=== PATIENT | male | born 1945 | race Two or more races ===

== ENCOUNTER 2017-06-02 20:49 | Inpatient (IN) | payer MEDICARE, OTHER ==
[~2017-06-02] VITALS: Ht 182.9 cm; Wt 100.7 kg
[2017-06-02] MEDS ORDERED: BICA50TA6 PO (21:07)
[2017-06-02] MEDS ORDERED: METF10004 PO (21:07)
[2017-06-02] MEDS ORDERED: CANA300T PO (21:07)
[2017-06-02] MEDS ORDERED: SITA100T PO (21:07)
[2017-06-02] MEDS ORDERED: BUPR300T54 PO (21:07)
[2017-06-02] MEDS ORDERED: LEUP22.53 IM (21:07)
[2017-06-02] MEDS ORDERED: PANT40TA4 PO (21:07)
[2017-06-02] MEDS ORDERED: BRIM5DRO3 OP (21:07)
[2017-06-02] MEDS ORDERED: ACET500C43 PO (21:07)
[2017-06-02] MEDS ORDERED: GEMF600T3 PO (21:07)
[2017-06-02] MEDS ORDERED: TAMS0.4C34 PO (21:07)
--- NOTE | 2017-06-02 22:05 | NUR ---
DR TARI LOPEZ MD AT BEDSIDE FOR MSE.
[2017-06-02 22:25] LABS: BASOPHILS % (AUTO) 0.3 % (0.0-2.0); EOSINOPHILS # (AUTO) 0.2 K/uL (0.0-0.7); HEMATOCRIT 30.2 % (36.7-47.1); HEMOGLOBIN 9.9 g/dL (12.5-16.3); LYMPHOCYTES % (AUTO) 22.2 % (20.5-51.5); MEAN CORPUSCULAR HEMOGLOBIN 27.9 uug (23.8-33.4); MEAN CORPUSCULAR HGB CONC 33 g/dL (32.5-36.3); MEAN CORPUSCULAR VOLUME 85.3 fL (73.0-96.2); MONOCYTES # (AUTO) 0.9 K/uL (2.0-10.0); MONOCYTES % (AUTO) 10.5 % (0.0-11.0); NEUTROPHILS # (AUTO) 5.8 K/uL (1.8-8.9); PLATELET COUNT (AUTO) 283 K/uL (152-348); RED BLOOD CELL COUNT(AUTO) 3.54 MIL/uL (4.06-5.63); WHITE BLOOD COUNT (AUTO) 8.9 K/uL (3.6-10.2)
--- NOTE | 2017-06-02 22:28 | NUR ---
XRAY AT PT BEDSIDE.
[2017-06-02 22:34] LABS: CARBON DIOXIDE 18 mmol/L (21-32); CHLORIDE 109 mmol/L (98-107); CREATININE 1.3 mg/dL (0.6-1.3); GLUCOSE 126 mg/dL (74-106); POTASSIUM 3.7 mmol/L (3.5-5.1); UREA NITROGEN, BLOOD 17 mg/dL (7-18)
[2017-06-02 22:40] LABS: ALANINE AMINOTRANSFERASE 17 U/L (16-63); ALKALINE PHOSPHATASE 115 U/L (50-136); ASPARTATE AMINOTRANSFERASE 13 U/L (15-37); BILIRUBIN,DIRECT 0.1 mg/dL (0.0-0.2); BILIRUBIN,TOTAL 0.3 mg/dL (0.2-1.0); TOTAL PROTEIN, SERUM 7.1 g/dL (6.4-8.2)
[2017-06-03] MEDS ORDERED: HYDROCODONE/APAP 5-325MG TABLET PO PRN (02:15)
[2017-06-03] MEDS ORDERED: DEXTROSE 50% 50 ML DISP.SYRIN IV PRN (02:15)
[2017-06-03] MEDS ORDERED: MAGNESIUM HYDROXIDE 30 ML LIQUID UDC PO PRN (02:15)
[2017-06-03] MEDS ORDERED: Z GUARD REMEDY PASTE 57 GM TUBE TOP PRN (02:15)
[2017-06-03] MEDS ORDERED: ACETAMINOPHEN 325 MG TABLET PO PRN (02:15)
[2017-06-03] MEDS ORDERED: ONDANSETRON 4 MG/2 ML VIAL IV PRN (02:15)
--- NOTE | 2017-06-03 03:15 | NUR ---
REPORT GIVEN TO CAROLINE RUIZ.
--- NOTE | 2017-06-03 03:40 | NUR ---
Pt. admitted to TELE, under care of Dr. SOLANO Belongs List completed
[2017-06-03 04:00] VITALS: BP 121/52
--- NOTE | 2017-06-03 04:10 | NUR ---
ADMITTED THIS71 Y.O. MALE FROM ER VIA [facility],ACCOMPANIED BY ER NURSE, IN APPARENTLY FAIR CONDITION,CHIEF COMPLAINTS OF DIZZINESS SINCE YESTERDAY.ALERT AND ORIENTED.NO ACUTE DISTRESS NOTED. FACIAL BRUISING NOTED. VITAL SIGNS TAKEN AND RECORDED.NEEDS ATTENDED TO, REFUSED TO BE EXAMINED AND ASSESSED AT THIS TIME, ACCORDING TO HIM HE JUST WANTS TO BE COVERED AND SLEEP .KEPT WARM AND COMFORTABLE. 2 RAILS UP AND BED ALARM ON . INSTRUCTIONS ON HOW TO USE CALL LITE PROVIDED, ABLE TO DEMONSTRATE UNDERSTANDING. G 20 0N LEFT AC INTACT.ON TELE SR/SB 55.
--- NOTE | 2017-06-03 05:35 | NUR ---
RESTING QUIETLY IN BED, NO COMPLAINTS OF PAIN PRESENTED, RN OFFERED TO DO SKILLED ASSESSMENT , DECLINED AND WANTS TO BE LEFT ALONE.
[2017-06-03 07:02] LABS: BASOPHILS % (AUTO) 0.4 % (0.0-2.0); EOSINOPHILS # (AUTO) 0.2 K/uL (0.0-0.7); EOSINOPHILS % (AUTO) 2.6 % (0.0-7.0); HEMATOCRIT 29.8 % (36.7-47.1); HEMOGLOBIN 9.7 g/dL (12.5-16.3); LYMPHOCYTES # (AUTO) 2.1 K/uL (20.0-40.0); LYMPHOCYTES % (AUTO) 27.8 % (20.5-51.5); MEAN CORPUSCULAR HEMOGLOBIN 27.9 uug (23.8-33.4); MEAN CORPUSCULAR HGB CONC 33 g/dL (32.5-36.3); MEAN CORPUSCULAR VOLUME 85.3 fL (73.0-96.2); MONOCYTES # (AUTO) 0.8 K/uL (2.0-10.0); MONOCYTES % (AUTO) 10.9 % (0.0-11.0); NEUTROPHILS # (AUTO) 4.5 K/uL (1.8-8.9); NEUTROPHILS % (AUTO) 58.3 % (38.5-71.5); PLATELET COUNT (AUTO) 242 K/uL (152-348); RED BLOOD CELL COUNT(AUTO) 3.49 MIL/uL (4.06-5.63); WHITE BLOOD COUNT (AUTO) 7.7 K/uL (3.6-10.2)
[2017-06-03 07:06] LABS: ALANINE AMINOTRANSFERASE 14 U/L (16-63); ALKALINE PHOSPHATASE 107 U/L (50-136); ASPARTATE AMINOTRANSFERASE 16 U/L (15-37); BILIRUBIN,TOTAL 0.4 mg/dL (0.2-1.0); CARBON DIOXIDE 19 mmol/L (21-32); CHLORIDE 110 mmol/L (98-107); CREATININE 1.2 mg/dL (0.6-1.3); GLUCOSE 112 mg/dL (74-106); MAGNESIUM 1.8 mg/dL (1.8-2.4); PHOSPHOROUS 3.5 mg/dL (2.5-4.9); POTASSIUM 3.4 mmol/L (3.5-5.1); TOTAL PROTEIN, SERUM 6.6 g/dL (6.4-8.2); UREA NITROGEN, BLOOD 17 mg/dL (7-18)
--- NOTE | 2017-06-03 07:30 | NUR ---
Report taken from rn hemodialysis charge. Patient is new admission to the unit at 0430 per report. New admission and assessment to be processed. Patient is resting in bed, easily arousable. Patient noted to have bruises on bridge of nose, nose asymmetrical, bruise on bilateral lower eyelids. Safety measures in place, bed alarm on.
[2017-06-03] MEDS: GEMFIBROZIL 600 MG TABLET PO SCH ×2 (08:18→16:01)
[2017-06-03] MEDS: PANTOPRAZOLE SODIUM 40 MG TABLET.DR PO SCH (08:18)
[2017-06-03] MEDS: buPROPion XL 150 MG TAB.SR.24H PO SCH (08:18)
[2017-06-03] MEDS: BLOOD SUGAR DIAGNOSTIC 1 EACH STRIP VI SCH ×4 (08:19→20:32)
[2017-06-03] MEDS ORDERED: BRIMONIDINE-P 0.1% OPHTH DROP 5 ML DROPS OP SCH (09:00)
[2017-06-03] MEDS ORDERED: Medication Not On Formulary EA (Bupropion Hcl (Bupropion Xl) 300 MG) PO SCH (09:00)
[2017-06-03] MEDS: BICALUTAMIDE 50 MG TABLET PO SCH (09:24)
[2017-06-03 11:23] VITALS: BP 115/50
[2017-06-03] MEDS: INSULIN REGULAR, HUMAN 300 UNIT/3 ML VIAL SQ PRN ×2 (12:42→16:11)
[2017-06-03] MEDS: IV NS 1000 ML 1,000 ML IV PRN (13:38)
[2017-06-03] MEDS ORDERED: POTASSIUM CHLORIDE 20 MEQ TAB.PRT.SR PO ONE (13:45)
[2017-06-03 15:30] VITALS: BP 139/71
[2017-06-03 17:00] VITALS: BP_SYST 116; BP_SYST 121; BP_SYST 91; BP_DIAS 55; BP_DIAS 62; BP_DIAS 67
--- NOTE | 2017-06-03 18:15 | NUR ---
Patient alert, in no distress. IVF running, no infiltration noted. Accuchecks done as ordered. Orthostatic bp done as ordered, Dr. Birmingham aware. Instructed patient to get up slowly and ask for toileting assistance when needed, patient verbalized understanding. Assisted patient with toileting needs. Safety measures in place, bed alarm on.
--- NOTE | 2017-06-03 19:20 | NUR ---
Received patient asleep during initial rounds. No s/s of pain/discomforts noted. deviated nose/septum, lower eyelids with visible bruises. Will continue care as planned.
[2017-06-03] MEDS: INSULIN REGULAR, HUMAN 300 UNITS/3 ML VIAL SQ PRN (20:34)
[2017-06-03 20:43] VITALS: BP 119/68
[2017-06-04] VITALS: BP 120/71
[2017-06-04] MEDS: IV NS 1000 ML 1,000 ML IV PRN (02:56)
[2017-06-04 04:00] VITALS: BP 125/68
[2017-06-04] MEDS: PANTOPRAZOLE SODIUM 40 MG TABLET.DR PO SCH (05:58)
[2017-06-04] MEDS: BLOOD SUGAR DIAGNOSTIC 1 EACH STRIP VI SCH ×4 (05:59→20:45)
--- NOTE | 2017-06-04 06:06 | NUR ---
Slept good. VS stable. No complaint presented all night. Urinal within reach. All needs attended and met. No syncope episode reported. No fall/injury.No significant event reported all night. Continue current plan of care.
[2017-06-04 07:02] LABS: CARBON DIOXIDE 18 mmol/L (21-32); CHLORIDE 112 mmol/L (98-107); CREATININE 1.1 mg/dL (0.6-1.3); GLUCOSE 107 mg/dL (74-106); MAGNESIUM 1.9 mg/dL (1.8-2.4); PHOSPHOROUS 3.8 mg/dL (2.5-4.9); POTASSIUM 3.7 mmol/L (3.5-5.1); UREA NITROGEN, BLOOD 17 mg/dL (7-18)
[2017-06-04 07:06] LABS: BASOPHILS % (AUTO) 0.6 % (0.0-2.0); EOSINOPHILS # (AUTO) 0.2 K/uL (0.0-0.7); HEMOGLOBIN 9.6 g/dL (12.5-16.3); LYMPHOCYTES # (AUTO) 2.1 K/uL (20.0-40.0); LYMPHOCYTES % (AUTO) 31.5 % (20.5-51.5); MEAN CORPUSCULAR HEMOGLOBIN 28.1 uug (23.8-33.4); MEAN CORPUSCULAR HGB CONC 33 g/dL (32.5-36.3); MEAN CORPUSCULAR VOLUME 85.1 fL (73.0-96.2); MONOCYTES # (AUTO) 0.7 K/uL (2.0-10.0); NEUTROPHILS # (AUTO) 3.6 K/uL (1.8-8.9); NEUTROPHILS % (AUTO) 53.9 % (38.5-71.5); PLATELET COUNT (AUTO) 263 K/uL (152-348); RED BLOOD CELL COUNT(AUTO) 3.41 MIL/uL (4.06-5.63); WHITE BLOOD COUNT (AUTO) 6.6 K/uL (3.6-10.2)
[2017-06-04] MEDS: buPROPion XL 150 MG TAB.SR.24H PO SCH (08:49)
[2017-06-04] MEDS: BICALUTAMIDE 50 MG TABLET PO SCH (08:49)
[2017-06-04] MEDS: GEMFIBROZIL 600 MG TABLET PO SCH ×2 (08:49→16:51)
[2017-06-04 11:17] VITALS: BP 127/69
[2017-06-04] MEDS: INSULIN REGULAR, HUMAN 300 UNIT/3 ML VIAL SQ PRN ×2 (12:06→16:50)
[2017-06-04 15:16] VITALS: BP 121/60
--- NOTE | 2017-06-04 17:55 | NUR ---
Patient pleasant, cooperative, in no distress. IVF infusing, no infiltration noted. No significant change of condition throughout the shift. VS stable, afebrile. All needs met. Safety measures in place, bed alarm on, call light within reach.
--- NOTE | 2017-06-04 19:30 | NUR ---
Pt alert, oriented and verbally responsive. Not in acute distress. Family at bedside. Denies any pain or SOB at this time. Tele Monitor discontinued per MD order. IV site on Left AC intact and patent. Safety measure initiated and call xiao within reached.
[2017-06-04] MEDS: MIDODRINE HCL 5 MG TABLET PO SCH (19:49)
[2017-06-04 20:35] VITALS: BP 129/71
[2017-06-04] MEDS: INSULIN REGULAR, HUMAN 300 UNITS/3 ML VIAL SQ PRN (20:48)
[2017-06-05] MEDS: IV NS 1000 ML 1,000 ML IV PRN (01:49)
--- NOTE | 2017-06-05 05:54 | NUR ---
AOx2-3. Denies any pain or SOB. Not in acute distress. IV site on left AC intact and patent. IVF infusing. Needs attended to and met. Safety measure maintained and call xiao within reach.
[2017-06-05 06:30] VITALS: BP 128/67
[2017-06-05] MEDS: BLOOD SUGAR DIAGNOSTIC 1 EACH STRIP VI SCH ×4 (06:30→20:50)
[2017-06-05] MEDS: PANTOPRAZOLE SODIUM 40 MG TABLET.DR PO SCH (06:30)
--- NOTE | 2017-06-05 06:50 | NUR ---
PT NOTED WITH MINIMAL NOSE BLEED ON RIGHT NOSTRIL. CLEANSE AREA. DENIES ANY PAIN. NO FURTHER BLEEDING NOTED AFTER.
[2017-06-05 07:09] LABS: CARBON DIOXIDE 18 mmol/L (21-32); CHLORIDE 111 mmol/L (98-107); GLUCOSE 117 mg/dL (74-106); MAGNESIUM 1.8 mg/dL (1.8-2.4); PHOSPHOROUS 3.8 mg/dL (2.5-4.9); POTASSIUM 3.5 mmol/L (3.5-5.1); UREA NITROGEN, BLOOD 17 mg/dL (7-18)
[2017-06-05 07:29] LABS: BASOPHILS % (AUTO) 0.5 % (0.0-2.0); EOSINOPHILS # (AUTO) 0.2 K/uL (0.0-0.7); EOSINOPHILS % (AUTO) 2.7 % (0.0-7.0); HEMATOCRIT 29.6 % (36.7-47.1); HEMOGLOBIN 9.8 g/dL (12.5-16.3); LYMPHOCYTES # (AUTO) 1.8 K/uL (20.0-40.0); LYMPHOCYTES % (AUTO) 28.6 % (20.5-51.5); MEAN CORPUSCULAR HEMOGLOBIN 28.3 uug (23.8-33.4); MEAN CORPUSCULAR HGB CONC 33 g/dL (32.5-36.3); MEAN CORPUSCULAR VOLUME 85.1 fL (73.0-96.2); MONOCYTES # (AUTO) 0.6 K/uL (2.0-10.0); NEUTROPHILS # (AUTO) 3.7 K/uL (1.8-8.9); NEUTROPHILS % (AUTO) 58.2 % (38.5-71.5); PLATELET COUNT (AUTO) 278 K/uL (152-348); RED BLOOD CELL COUNT(AUTO) 3.48 MIL/uL (4.06-5.63); WHITE BLOOD COUNT (AUTO) 6.4 K/uL (3.6-10.2)
--- NOTE | 2017-06-05 07:41 | NUR ---
received report from night nurse. patient stable with no s/s acute distress. patient asleep in bed, rails up x2. call light within reach. will continue to monitor,
[2017-06-05] MEDS: BICALUTAMIDE 50 MG TABLET PO SCH (08:07)
[2017-06-05] MEDS: buPROPion XL 150 MG TAB.SR.24H PO SCH (08:08)
[2017-06-05] MEDS: MIDODRINE HCL 5 MG TABLET PO SCH ×3 (08:12→16:44)
[2017-06-05] MEDS: GEMFIBROZIL 600 MG TABLET PO SCH ×2 (08:14→16:41)
[2017-06-05] MEDS: INSULIN REGULAR, HUMAN 300 UNIT/3 ML VIAL SQ PRN (11:07)
[2017-06-05] MEDS ORDERED: POTASSIUM CHLORIDE 20 MEQ TAB.PRT.SR PO ONE (11:15)
[2017-06-05 11:36] VITALS: BP 120/68
[2017-06-05] MEDS: CYANOCOBALAMIN 1000 MCG/ML VIAL IM SCH (11:42)
[2017-06-05 15:40] VITALS: BP 125/75
--- NOTE | 2017-06-05 18:53 | NUR ---
patient stable this shift. plan to DC tomorrow AM. IV site and fluids discontinued. patient stable, walked around unit with walker and son assist. no s/s distress
[2017-06-05 20:00] VITALS: BP 121/68
--- NOTE | 2017-06-05 20:00 | NUR ---
RECEIVED PATIENT AWAKE IN BED, HE'S AOX4. HE DENIES PAIN OR ANY DISTRESS, V/S ARE STABLE. NO C/O OF DIZZINESS AT THIS TIME. SAFETY AND COMFORT MEASURES IN PLACE, CALL LIGHT PLACED WITHIN PATIENT'S REACH
[2017-06-06 04:44] VITALS: BP 112/65
[2017-06-06] MEDS: PANTOPRAZOLE SODIUM 40 MG TABLET.DR PO SCH (06:31)
[2017-06-06] MEDS: BLOOD SUGAR DIAGNOSTIC 1 EACH STRIP VI SCH ×2 (06:34→11:57)
--- NOTE | 2017-06-06 06:46 | NUR ---
PATIENT SLEPT WELL THROUGH THE NIGHT, HE DENIED PAIN OR ANY DISCOMFORT. NO C/O DIZZINESS ON THIS SHIFT, V/S STABLE. NO SIGNIFICANCE CHANGES IN STATUS. SAFETY MEASURES MAINTAINED AT ALL TIMES, ALL NEEDS MET
--- NOTE | 2017-06-06 07:15 | NUR ---
Received client in bed awake, alert times 3, laying supine in a semi fowlers position watching television. Client is asking what time he is being discharged today, inform him that I would update him as soon as I talked to case management. No apparent s/s of pain, distress, discomfort, SOB or labored breathing. Bed at lowest position for safety and call light within reach for assistance
--- NOTE | 2017-06-06 09:03 | NUR ---
Patient is requesting to go home and not be transferred to ARU. Patient is stating that his is waiting for him at home. Case management aware and is speaking with him at this moment. Physical therapy took place with noted hypotensive episode asymptomatic, with sitting BP at 122/77, standing 80/86 and standing after walking at BP 87/84 with HR 120. Patient agree to tour ARU.
[2017-06-06] MEDS: BICALUTAMIDE 50 MG TABLET PO SCH (09:18)
[2017-06-06] MEDS: buPROPion XL 150 MG TAB.SR.24H PO SCH (09:19)
[2017-06-06] MEDS: GEMFIBROZIL 600 MG TABLET PO SCH (09:19)
[2017-06-06] MEDS: CYANOCOBALAMIN 1000 MCG/ML VIAL IM SCH (09:21)
[2017-06-06] MEDS: MIDODRINE HCL 5 MG TABLET PO SCH ×2 (09:21→12:17)
[2017-06-06 11:42] VITALS: BP 129/75
[2017-06-06] MEDS: INSULIN REGULAR, HUMAN 300 UNIT/3 ML VIAL SQ PRN (11:59)
[2017-06-06] MEDS ORDERED: BRIMONIDINE 0.2% OPHT DROP 10 ML BOTTLE OP SCH (12:00)
[2017-06-06 12:17] VITALS: BP 137/74
--- NOTE | 2017-06-06 13:40 | NUR ---
Patient was discharged with order to Home with [facility]. Patient is under no apparent s/s of pain, distress, discomfort, SOB or labored breathing. Son and patient spoke to hospitalist before leaving the facility, new medications were explained to them and to continue home medications. Patient was noted in good spirits and happy to be going home, patient walked several times around the unit with no signs of dizziness. ID band removed. IV access was DC'ed on 06/05. All discharged papers signed by patient.
[2017-06-06] MEDS ORDERED: MIDO5TAB PO (15:09)
[2017-06-06] MEDS ORDERED: CYAN10006 IM (15:09)
== END 2017-06-06 15:45 | disposition home health service (06) | DRG 73 ==
LOC: ER 20:49 → TELE 06-03 02:55 → MED 06-04 20:00
PROVIDERS: ADMIT Internal Medicine; ATTEND Internal Medicine
DX: G90.8 Other disorders of autonomic nervous system (principal); N17.0 Acute kidney failure with tubular necrosis; E11.65 Type 2 diabetes mellitus with hyperglycemia; D68.59 Other primary thrombophilia; E27.40 Unspecified adrenocortical insufficiency; S02.40CA Maxillary fracture, right side, initial encounter for closed fracture; S06.0X9A Concussion with loss of consciousness of unspecified duration, initial encounter; I95.1 Orthostatic hypotension; S02.2XXA Fracture of nasal bones, initial encounter for closed fracture; H40.9 Unspecified glaucoma; E78.5 Hyperlipidemia, unspecified; V48.4XXA Person boarding or alighting a car injured in noncollision transport accident, initial encounter; W19.XXXA Unspecified fall, initial encounter; Y92.9 Unspecified place or not applicable; F17.211 Nicotine dependence, cigarettes, in remission; E87.6 Hypokalemia; Z79.84 Long term (current) use of oral hypoglycemic drugs; F31.9 Bipolar disorder, unspecified; Z74.09 Other reduced mobility; C61 Malignant neoplasm of prostate; K21.9 Gastro-esophageal reflux disease without esophagitis; K59.00 Constipation, unspecified; E53.8 Deficiency of other specified B group vitamins; D64.9 Anemia, unspecified; Z86.73 Personal history of transient ischemic attack (TIA), and cerebral infarction without residual deficits; N40.0 Benign prostatic hyperplasia without lower urinary tract symptoms; R29.6 Repeated falls; M43.12 Spondylolisthesis, cervical region; M19.90 Unspecified osteoarthritis, unspecified site
CPT/HCPCS: 36415; 70030-TC; 70450; 70486; 71045; 72125; 82306; 83550; 83735; 84100; 84443; 85025; 85730; 93005; 93307; 97110; 97116; 97530; A4663; J1815; J3420; J7030; J8499

== ENCOUNTER 2022-04-30 03:31 | Inpatient (IN) | payer MEDICARE, OTHER ==
[~2022-04-30] VITALS: Ht 182.9 cm; Wt 98.4 kg
[~2022-04-30 03:31] MED LIST: ACET500C43 PO; BICA50TA8 PO; BRIM5DRO3 OP; BUPR-319 PO; CANA300T PO; CYAN10006 IM; LEUP22.53 IM; METF-442 PO; MIDO5TAB5 PO; PANT40TA49 PO; SITA100T PO; TAMS0.4C34 PO
[2022-04-30] MEDS ORDERED: ACETAMINOPHEN 325 MG TABLET PO PRN (04:00)
[2022-04-30] MEDS ORDERED: MAG HYDROX/AL HYDROX/SIMETH 30 ML LIQUID UDC PO PRN (04:00)
--- NOTE | 2022-04-30 04:11 | NUR ---
GPS NOTES: Admitted 76 y/o male client from [facility], was transported via ambulance by two DI[employer] SELECTOR to [facility] [place]. Patient currently residing at [facility], where the patient was confused and made statement of suicide and placed on 5150 hold. Patient yelling, screaming and confused telling staff over a week that he wants to kill himself and he feels hopeless. Upon face to face evaluation, appearance is presentable, well-nourished and no distress noted. He is A&0x2. Patient unable to participate in initial assessments and sign documents as he is confused and not understanding the concepts of information being given. He proceeds to ignore the senior underwriter then sleeps. His advisement and patient rights handbook at bedside. He will be under Dr. Donald and Dr. Belcher. All safety measures implemented.
[2022-04-30] MEDS ORDERED: FINA5TAB11 PO (04:31)
[2022-04-30] MEDS ORDERED: TAMS-3 PO (04:31)
[2022-04-30 08:03] VITALS: BP 112/60
[2022-04-30] MEDS: LORAZEPAM 0.5 MG TABLET PO PRN ×2 (08:45→20:14)
[2022-04-30] MEDS: HALOPERIDOL 5 MG TABLET PO SCH ×2 (12:31→17:11)
--- NOTE | 2022-04-30 14:35 | NUR ---
GPS: Nursing Notes: Destructive Behavior To Self: Patient is awake and responding to her name name, poor anger management, overly demanding, loud and pressured speech, banging on the table, poor impulse control, disoriented to time and situation, gets easily irritable when redirected, overly disruptive this AM by shouting, unable to formulate a viable plan for self care, unkempt appearance, continue to monitor for safety, denies SI, continue with treatment plan.
[2022-04-30 16:16] VITALS: BP 134/63
[2022-04-30] MEDS ORDERED: MIDODRINE HCL 5 MG TABLET PO SCH (17:00)
[2022-04-30] MEDS ORDERED: Medication Not On Formulary EA (Metformin Hcl 1,000 MG) PO SCH (17:00)
[2022-04-30] MEDS: METFORMIN HCL 500 MG TABLET PO SCH (17:10)
[2022-04-30] MEDS ORDERED: BRIM10DR6 LEFTEYE (18:57)
[2022-04-30] MEDS ORDERED: DEXT15DR6 EACHEYE (18:57)
[2022-04-30] MEDS ORDERED: GLIP5TAB13 PO (18:59)
[2022-04-30] MEDS ORDERED: DOCU-141 PO (18:59)
[2022-04-30] MEDS ORDERED: INSU100V7 SQ (18:59)
[2022-04-30] MEDS ORDERED: DORZ10DR11 LEFTEYE (18:59)
[2022-04-30] MEDS ORDERED: LATA2.5D2 EACHEYE (19:00)
[2022-04-30 20:06] VITALS: BP 108/64
[2022-04-30] MEDS: TAMSULOSIN HCL 0.4 MG CAP.SR.24H PO SCH (20:14)
--- NOTE | 2022-05-01 06:10 | NUR ---
Patient has been calm this shift, but is unkept, has poor hygiene and poor eye contact. Minimal willingness to engage in conversation with this marketing writer or to let needs be known. Safety Stratiges are in place and continuing to monitor him for behavior escalation and too provide assistance with ADLs as needed. No SI noted.
[2022-05-01] MEDS ORDERED: MULT-24 PO (06:17)
[2022-05-01] MEDS ORDERED: SENN-18 PO (06:18)
[2022-05-01] MEDS: PANTOPRAZOLE SODIUM 40 MG TABLET.DR PO SCH (06:54)
[2022-05-01 07:41] LABS: BILIRUBIN,TOTAL 0.4 mg/dL (0.2-1.0); TOTAL PROTEIN, SERUM 6.1 g/dL (6.4-8.2)
[2022-05-01 08:05] VITALS: BP 99/51
[2022-05-01] MEDS ORDERED: Canagliflozin (Invokana) 300 MG) PO SCH (09:00)
[2022-05-01] MEDS ORDERED: Sitagliptin Phosphate (Januvia) 100 MG) PO SCH (09:00)
[2022-05-01] MEDS ORDERED: BRIMONIDINE-P 0.1% OPHTH DROP 5 ML DROPS OP SCH (09:00)
[2022-05-01] MEDS: METFORMIN HCL 500 MG TABLET PO SCH ×2 (10:27→18:09)
[2022-05-01] MEDS: FINASTERIDE 5 MG TABLET PO SCH (10:27)
[2022-05-01] MEDS: HALOPERIDOL 5 MG TABLET PO SCH ×3 (10:27→18:10)
--- NOTE | 2022-05-01 10:38 | NUR ---
SYL Initial Discharge Note: Pt currently resides at [facility] due located at [address] [place] [address] ([phone]). SYL spoke with Yeni in admissions at [facility] who stated that pt is welcome back upon discharge. SYL will contact pt's , Hakan ([phone]) and son, Chris ([phone]) and discuss pt's discharge plan. SYL will continue to work with pt, family and MD to ensure a safe and proper discharge plan.
[2022-05-01] MEDS: BICALUTAMIDE 50 MG TABLET PO SCH (10:43)
[2022-05-01] MEDS: BENZTROPINE MESYLATE 1 MG TABLET PO SCH ×2 (13:01→18:10)
[2022-05-01] MEDS: BRIMONIDINE 0.2% OPHT DROP 10 ML BOTTLE LEFTEYE SCH ×2 (13:04→18:10)
[2022-05-01 15:15] VITALS: BP 111/49
[2022-05-01] MEDS: DOCUSATE SODIUM 100 MG CAPSULE PO SCH (18:09)
[2022-05-01] MEDS: LORAZEPAM 0.5 MG TABLET PO PRN (20:17)
[2022-05-01] MEDS: TAMSULOSIN HCL 0.4 MG CAP.SR.24H PO SCH (20:17)
[2022-05-01 20:55] VITALS: BP 100/50
--- NOTE | 2022-05-01 21:52 | NUR ---
GPS: Pt.is anxious,gets restless at times. Re-assured and re-directed prn. Med.compliant. No increased agitation noted. Safe environment provided. Needs attended. Will continue to monitor. Denies wanting to hurt self.
[2022-05-01] MEDS: TEMAZEPAM 7.5 MG CAPSULE PO PRN (22:57)
[2022-05-02] MEDS: PANTOPRAZOLE SODIUM 40 MG TABLET.DR PO SCH (06:31)
[2022-05-02 07:30] VITALS: BP 119/75
[2022-05-02] MEDS: BRIMONIDINE 0.2% OPHT DROP 10 ML BOTTLE LEFTEYE SCH ×3 (08:11→16:13)
[2022-05-02] MEDS: FINASTERIDE 5 MG TABLET PO SCH (08:12)
[2022-05-02] MEDS: HALOPERIDOL 5 MG TABLET PO SCH ×3 (08:12→16:12)
[2022-05-02] MEDS: METFORMIN HCL 500 MG TABLET PO SCH ×2 (08:12→17:11)
[2022-05-02] MEDS: BENZTROPINE MESYLATE 1 MG TABLET PO SCH ×3 (08:18→16:12)
[2022-05-02] MEDS: BICALUTAMIDE 50 MG TABLET PO SCH (08:19)
[2022-05-02] MEDS: DOCUSATE SODIUM 100 MG CAPSULE PO SCH ×2 (08:22→16:12)
--- NOTE | 2022-05-02 12:39 | NUR ---
Nursing -Patient requesting to be fed, claimed poor blurry vision , encouraged to feed self, tray set up. Wheel self around using his wheel chair.Safety reviewed, emphasized
[2022-05-02] MEDS ORDERED: ACET250T3 PO (15:21)
[2022-05-02 16:00] VITALS: BP 99/47
[2022-05-02] MEDS: TAMSULOSIN HCL 0.4 MG CAP.SR.24H PO SCH (20:42)
[2022-05-02] MEDS: MIRTAZAPINE 15 MG TABLET PO SCH (20:42)
[2022-05-02 20:43] VITALS: BP 112/62
[2022-05-03] MEDS: TEMAZEPAM 7.5 MG CAPSULE PO PRN ×2 (02:10→23:28)
[2022-05-03] MEDS: PANTOPRAZOLE SODIUM 40 MG TABLET.DR PO SCH (06:23)
[2022-05-03 07:30] VITALS: BP 105/51
[2022-05-03] MEDS: FINASTERIDE 5 MG TABLET PO SCH (08:42)
[2022-05-03] MEDS: HALOPERIDOL 5 MG TABLET PO SCH ×3 (08:42→16:37)
[2022-05-03] MEDS: DOCUSATE SODIUM 100 MG CAPSULE PO SCH ×2 (08:42→16:37)
[2022-05-03] MEDS: BENZTROPINE MESYLATE 1 MG TABLET PO SCH ×3 (08:43→16:37)
[2022-05-03] MEDS: METFORMIN HCL 500 MG TABLET PO SCH ×2 (08:43→17:17)
[2022-05-03] MEDS: BRIMONIDINE 0.2% OPHT DROP 10 ML BOTTLE LEFTEYE SCH ×3 (08:44→16:37)
[2022-05-03] MEDS: BICALUTAMIDE 50 MG TABLET PO SCH (08:44)
--- NOTE | 2022-05-03 11:08 | NUR ---
SYL Family Contact: SW spoke with with pt's , Hakan ([phone]) regarding pt's return to [facility] upon discharge. Hakan confirmed that she would like the pt to receive monthly injectable. SYL informed Dr. Baldwin and confirmed. Yeni from [facility] once again confirmed pt's return upon discharge to [facility] sn[facility].
--- NOTE | 2022-05-03 11:26 | NUR ---
Nursing - Had been cooperative with the staff, compliant with am medications. . Safety reviewed, propel wheel chair , safety reviewed during his wheel chair to bed transfer
[2022-05-03 16:00] VITALS: BP 102/33
[2022-05-03 20:37] VITALS: BP 109/52
[2022-05-03] MEDS: MIRTAZAPINE 15 MG TABLET PO SCH (20:59)
[2022-05-03] MEDS: TAMSULOSIN HCL 0.4 MG CAP.SR.24H PO SCH (20:59)
--- NOTE | 2022-05-03 21:30 | NUR ---
Received patient in his room sitting in a wheelchair. He is noted A/O x 2. He appears depressed. his mood is low affect is blunted. He is able to comply with medication regiment diet and plan of care. He is reassured for his safety. safety and fall precautions are in place. he was given PO fluids and snacks. V/S are stable. patient in no distress. all his needs are met. will continue to monitor.
[2022-05-04] MEDS: PANTOPRAZOLE SODIUM 40 MG TABLET.DR PO SCH (06:50)
[2022-05-04 08:06] VITALS: BP 126/43
[2022-05-04] MEDS: METFORMIN HCL 500 MG TABLET PO SCH ×2 (08:53→17:20)
[2022-05-04] MEDS: FINASTERIDE 5 MG TABLET PO SCH (08:54)
[2022-05-04] MEDS: HALOPERIDOL 5 MG TABLET PO SCH ×3 (08:54→17:20)
[2022-05-04] MEDS: DOCUSATE SODIUM 100 MG CAPSULE PO SCH ×2 (08:54→17:20)
[2022-05-04] MEDS: BENZTROPINE MESYLATE 1 MG TABLET PO SCH ×3 (08:54→17:20)
[2022-05-04] MEDS: BRIMONIDINE 0.2% OPHT DROP 10 ML BOTTLE LEFTEYE SCH ×5 (08:56→17:00)
[2022-05-04] MEDS: BICALUTAMIDE 50 MG TABLET PO SCH (08:57)
[2022-05-04] MEDS ORDERED: INSULIN REGULAR, HUMAN 300 UNIT/3 ML VIAL SQ PRN (10:15)
[2022-05-04] MEDS ORDERED: DEXTROSE 50% 50 ML DISP.SYRIN IV PRN (10:15)
[2022-05-04] MEDS ORDERED: BLOOD SUGAR DIAGNOSTIC 1 EACH STRIP VI SCH (11:30)
--- NOTE | 2022-05-04 12:34 | NUR ---
Airline Reservation Agent prescribed one time order for accucheck, pt blood sugar was 146, Airline Reservation Agent DC accucheck and insulin.
--- NOTE | 2022-05-04 16:01 | NUR ---
Receive pt in room awake, Pt is A/O X2.Pt ambulate via wheelchair.Pt is continent and uses urinal. Pt has unkept appearance. Pt is depressed and guarded. Pt is compliant with most of medications but needs prompting at times.Pt stays in room and does not participate in group activities. Wheelchair safety implemented.Continue to monitor for safety, continue with treatment plan.
[2022-05-04 16:13] VITALS: BP 109/44
[2022-05-04 20:03] VITALS: BP 106/62
[2022-05-04] MEDS: MIRTAZAPINE 15 MG TABLET PO SCH (20:22)
[2022-05-04] MEDS: TEMAZEPAM 7.5 MG CAPSULE PO PRN (20:22)
[2022-05-04] MEDS: TAMSULOSIN HCL 0.4 MG CAP.SR.24H PO SCH (20:22)
[2022-05-05] MEDS: PANTOPRAZOLE SODIUM 40 MG TABLET.DR PO SCH (06:13)
[2022-05-05] MEDS: FINASTERIDE 5 MG TABLET PO SCH (08:50)
[2022-05-05] MEDS: METFORMIN HCL 500 MG TABLET PO SCH ×2 (08:51→16:29)
[2022-05-05] MEDS: BENZTROPINE MESYLATE 1 MG TABLET PO SCH ×3 (08:51→16:27)
[2022-05-05] MEDS: HALOPERIDOL 5 MG TABLET PO SCH ×3 (08:51→16:27)
[2022-05-05] MEDS: DOCUSATE SODIUM 100 MG CAPSULE PO SCH ×2 (08:51→16:27)
[2022-05-05] MEDS: BICALUTAMIDE 50 MG TABLET PO SCH (08:54)
[2022-05-05] MEDS: BRIMONIDINE 0.2% OPHT DROP 10 ML BOTTLE LEFTEYE SCH ×3 (08:55→16:30)
[2022-05-05 09:07] VITALS: BP 116/51
[2022-05-05 15:31] VITALS: BP 96/51
--- NOTE | 2022-05-05 18:23 | NUR ---
Received patient is alert and oriented x2 ,compliant with all medication and able to follow directions ,isolative and withdrawn no interaction with other peers, denies any suicidal ideation.wheel self around with W/C, urinal within reach will continue close monitoring.
[2022-05-05 20:10] VITALS: BP 102/54
[2022-05-05] MEDS: TAMSULOSIN HCL 0.4 MG CAP.SR.24H PO SCH (20:41)
[2022-05-05] MEDS: MIRTAZAPINE 15 MG TABLET PO SCH (20:41)
[2022-05-05] MEDS: TEMAZEPAM 7.5 MG CAPSULE PO PRN (21:17)
--- NOTE | 2022-05-06 01:57 | NUR ---
Although pt initiates interaction, pt is mainly withdrawn and isolates himself in his room/bed. Overall compliant.
[2022-05-06] MEDS: PANTOPRAZOLE SODIUM 40 MG TABLET.DR PO SCH (06:10)
[2022-05-06 07:46] VITALS: BP 113/52
[2022-05-06] MEDS: BENZTROPINE MESYLATE 1 MG TABLET PO SCH ×3 (08:47→16:42)
[2022-05-06] MEDS: METFORMIN HCL 500 MG TABLET PO SCH ×2 (08:47→16:46)
[2022-05-06] MEDS: HALOPERIDOL 5 MG TABLET PO SCH ×3 (08:47→16:42)
[2022-05-06] MEDS: DOCUSATE SODIUM 100 MG CAPSULE PO SCH ×2 (08:47→16:42)
[2022-05-06] MEDS: FINASTERIDE 5 MG TABLET PO SCH (08:47)
[2022-05-06] MEDS: BICALUTAMIDE 50 MG TABLET PO SCH (08:48)
[2022-05-06] MEDS: BRIMONIDINE 0.2% OPHT DROP 10 ML BOTTLE LEFTEYE SCH ×3 (08:52→16:47)
[2022-05-06] MEDS ORDERED: HALOPERIDOL DECANOATE 50 MG/1 ML AMPUL IM ONE (15:00)
--- NOTE | 2022-05-06 15:06 | NUR ---
SYL Family Contact: SYL spoke with pt's , Hakan ([phone]) regarding pt's treatment status and discharge plan. Hakan ia aware that Kia in admissions at [facility] [phone] stated pt is able to return back once pt is cleared for discharge by psychiatrist, Dr. Baldwin. SYL informed Hakan that this policy writer typist has been speaking to both Kia and Yeni in admissions. SYL will continue to update.
[2022-05-06 20:16] VITALS: BP 100/54
[2022-05-06] MEDS: TAMSULOSIN HCL 0.4 MG CAP.SR.24H PO SCH (21:30)
[2022-05-06] MEDS: MIRTAZAPINE 15 MG TABLET PO SCH (21:31)
[2022-05-07] MEDS: PANTOPRAZOLE SODIUM 40 MG TABLET.DR PO SCH (06:46)
[2022-05-07 07:40] VITALS: BP 109/49
[2022-05-07] MEDS: HALOPERIDOL 5 MG TABLET PO SCH ×3 (08:23→16:56)
[2022-05-07] MEDS: FINASTERIDE 5 MG TABLET PO SCH (08:23)
[2022-05-07] MEDS: DOCUSATE SODIUM 100 MG CAPSULE PO SCH ×2 (08:23→16:56)
[2022-05-07] MEDS: BENZTROPINE MESYLATE 1 MG TABLET PO SCH ×3 (08:23→16:56)
[2022-05-07] MEDS: BICALUTAMIDE 50 MG TABLET PO SCH (08:24)
[2022-05-07] MEDS: METFORMIN HCL 500 MG TABLET PO SCH ×2 (08:24→17:00)
[2022-05-07] MEDS: BRIMONIDINE 0.2% OPHT DROP 10 ML BOTTLE LEFTEYE SCH ×3 (08:25→16:56)
[2022-05-07 15:25] VITALS: BP 149/98
--- NOTE | 2022-05-07 15:30 | NUR ---
Patient had court hearing today, ceramic capacitor processor decided to break his 14 DAY hold and discharge patient to [facility] SN[facility]. Facility was informed and expecting him tomorrow. Patient signed Voluntary.
--- NOTE | 2022-05-07 15:56 | NUR ---
SYL Family Contact: SW spoke with with pt's , Hakan ([phone]) regarding pt's return to [facility] upon discharge tomorrow morning and she is agreeable.
--- NOTE | 2022-05-07 16:13 | NUR ---
Received patient sleeping in his room. Patient is cooperative, compliant with medications, confused and forgetful at times, isolative. Patient requires more than minimal assistance with ADL. Reassurance given. Fall and safety precautions implemented.
[2022-05-07 20:00] VITALS: BP 110/50
[2022-05-07] MEDS: LORAZEPAM 0.5 MG TABLET PO PRN (21:04)
[2022-05-07] MEDS: TAMSULOSIN HCL 0.4 MG CAP.SR.24H PO SCH (21:04)
[2022-05-07] MEDS: MIRTAZAPINE 15 MG TABLET PO SCH (21:04)
[2022-05-08] MEDS: TEMAZEPAM 7.5 MG CAPSULE PO PRN (00:11)
--- NOTE | 2022-05-08 02:07 | NUR ---
Pt had moments of confusion, disorientation, and delusional thoughts this shift. Pt is able to call for help/assistance with ADL/bathroom usage. Pt is x1 assit with WC. Gait and balance is unsteady. Pt is able to be re-directed and educated on his POC. Denied SI/HI. Contracted for safety. Will continue to monitor.
--- NOTE | 2022-05-08 02:39 | NUR ---
Pt was roaming the unit, mindlessly entering other patient's rooms and yelling out circumstantial statements. Patient was confused and disoriented this shift. Did not positively respond to scheduled medications nor prn meds, although compliantly took them. Placed onto gerichair for closer monitoring. Safety measures taken.
[2022-05-08] MEDS: PANTOPRAZOLE SODIUM 40 MG TABLET.DR PO SCH (06:21)
[2022-05-08 07:30] VITALS: BP 136/85
[2022-05-08] MEDS: METFORMIN HCL 500 MG TABLET PO SCH (08:32)
[2022-05-08] MEDS: BENZTROPINE MESYLATE 1 MG TABLET PO SCH (08:32)
[2022-05-08] MEDS: FINASTERIDE 5 MG TABLET PO SCH (08:32)
[2022-05-08] MEDS: BICALUTAMIDE 50 MG TABLET PO SCH (08:32)
[2022-05-08] MEDS: DOCUSATE SODIUM 100 MG CAPSULE PO SCH (08:33)
[2022-05-08] MEDS: HALOPERIDOL 5 MG TABLET PO SCH (08:33)
[2022-05-08] MEDS: BRIMONIDINE 0.2% OPHT DROP 10 ML BOTTLE LEFTEYE SCH (08:33)
--- NOTE | 2022-05-08 11:13 | NUR ---
SYL Discharge Note: Pt will be discharged to return to [facility] located at [address] [place] [address] ([phone]) via Ambulance transportation at 12PM. SYL spoke with admin coordinator, Yeni at the facility who states they are ready to accept the patient today. Pt is aware and agreeable with discharge plan. Pts , Hakan ([phone]) is aware and agreeable with the discharge plan. Pt is alert and oriented x3, is unable to plan for self-care at this time. However, pt is willing to accept care and return to [facility]. Pt denies any suicidal or homicidal ideation. Pt will follow-up at the facility with Psychiatrist, Dr. Logan and Nurse Practitioner, Teri Renteria. Pt presents with calm mood and congruent affect. PHARMACY: [facility] ([phone]) [address] [place] [address].
--- NOTE | 2022-05-08 12:45 | NUR ---
Received orders to discharge this patient to [facility] located at [address] [place] [address], [place] [phone] ([phone]) via [facility] at 12:30PM. Patient is agreeable with discharge plans, but refused to sign discharge documentation. All belongings were returned to patient. Patient denies SI/HI AH/VH, SOB, pain or any discomfort. Patient left unit at 12:40PM. Emotional support provided. Fall and safety precautions implemented.
== END 2022-05-08 12:40 | DRG 885 ==
LOC: GPS 03:31
PROVIDERS: ADMIT Psychiatry & Neurology Psychosomatic Medicine; ATTEND Internal Medicine
DX: F20.9 Schizophrenia, unspecified (principal); N18.9 Chronic kidney disease, unspecified; R45.851 Suicidal ideations; E11.22 Type 2 diabetes mellitus with diabetic chronic kidney disease; F32.A Depression, unspecified; F41.9 Anxiety disorder, unspecified; Z87.891 Personal history of nicotine dependence; Z91.199 Patient's noncompliance with other medical treatment and regimen due to unspecified reason; Z20.822 Contact with and (suspected) exposure to COVID-19; Z73.6 Limitation of activities due to disability; M62.81 Muscle weakness (generalized); F29 Unspecified psychosis not due to a substance or known physiological condition; Z85.46 Personal history of malignant neoplasm of prostate
CPT/HCPCS: 36415; 93005; J1631; J1815